=== PATIENT | male | born 1965 | race Caucasian/White ===

== ENCOUNTER 2022-11-28 00:49 | Emergency (ER) | payer BC, OTHER ==
[2022-11-28 00:56] VITALS: BP 157/107; PULSE 100; RESP 16; TEMP 98; BMI 33.0
[2022-11-28] MEDS ORDERED: CLINDAMYCIN HCL 300 MG CAPSULE PO ONE (01:12)
[2022-11-28] MEDS ORDERED: CLINDAMYCIN HCL 150 MG CAPSULE (FP) ONE (01:15)
== END 2022-11-28 01:38 | disposition home or self-care (01) ==
LOC: FER 00:49
DX: L03.116 Cellulitis of left lower limb (principal); L02.612 Cutaneous abscess of left foot; R22.42 Localized swelling, mass and lump, left lower limb; L53.9 Erythematous condition, unspecified
CPT/HCPCS: 87070; 87186; 87205; 99283-25